=== PATIENT | male | born 1970 | race Caucasian/White ===

== ENCOUNTER → 2019-08-05 | Outpatient (CLI) | payer OTHER | LOC: M.LAB 07:20 | PROVIDERS: ATTEND Orthopaedic Surgery | DX: Z01.812 Encounter for preprocedural laboratory examination (principal); Z11.59 Encounter for screening for other viral diseases ==

== ENCOUNTER → 2019-08-08 | Outpatient (CLI) | payer OTHER ==
[2019-08-08 12:58] LABS: POTASSIUM 4.2 mmol/L (3.5-5.1)
== END ==
LOC: M.LAB 05:37
PROVIDERS: ATTEND Anesthesiology
DX: E87.5 Hyperkalemia (principal); E11.9 Type 2 diabetes mellitus without complications